=== PATIENT | female | born 1990 | race Caucasian/White ===

== ENCOUNTER 2018-08-12 12:25 | Outpatient (REF) | payer MEDICAID, SELFPAY ==
--- NOTE | 2018-08-12 11:20 | PAPFT_PTH ---
PATIENT: Simon Aguila LOC: [facility] U#:[id number] AGE/SX: 28/F ROOM: RE08/12/[address]: VERITO Quan : 1990 BED: DIS: 08/12/2018 SPEC #: [id number] RECD: 08/12/18 12:50 STATUS: DAWSON REEmily #: [id number] PIA: 08/12/18 11:[address]: Lissa Castillo DEPT: [facility] Cytology RECD BY: Cari Osborn Tissues: 1 - CX/ENDOCX FOR PAP SMEARS Procedures: PAP THIN PREP/UVM Screening Comments: [id number]
[2018-08-15 15:23] LABS: Chlamydia Result Negative; GC Result Negative; Specimen Description CERVIX
== END 2018-08-12 12:45 ==
LOC: LBN 12:25
PROVIDERS: Visit Provider Nurse Practitioner Family
DX: Z11.3 Encounter for screening for infections with a predominantly sexual mode of transmission (principal); Z12.4 Encounter for screening for malignant neoplasm of cervix; R30.0 Dysuria
CPT/HCPCS: 87491; 87591; 88142; 87086

== ENCOUNTER 2018-11-01 01:57 | Emergency (ER) | payer SELFPAY ==
[2018-11-01 02:03] VITALS: BP 127/86; PULSE 115; RESP 20; TEMP 36.7; O2SAT 96
--- NOTE | 2018-11-01 02:14 | NUR.NOTE ---
Nursing Note: Pt verbally contracts for safety while here in ED. Mother to stay with pt in room. MD aware. Pt is calm, appropriate and cooperative.
--- NOTE | 2018-11-01 02:28 | W.ED.GENAD ---
Discharge Plan Disposition Patient Disposition: HOME Condition: Improving Discharge Details Chief Complaint: PsychEval Clinical Impression: Acute depression, Deliberate self-cutting Primary Care Provider: None,None ED Provider: Yojana Tillman Home Meds and New Rx's Prescriptions: Continued Mirena 1 EACH intrauterine device 1 ea Intrauterine q5yr Qty: 1 RF: 0 Discharge Instructions Instructions: Laceration (ED), Suicide Prevention for Adults (ED), Depression in Adolescents (ED) Additional Instructions: Keep wound clean, dry, covered. May wash with soap and water. Please keep covered, particularly when at work. Monitor wounds for signs of infection including redness, warmth, discharge, fevers/chills. If these arise please seek care urgently once again. You have contacted for safety. Please check in with mom as discussed at set times. If you are unable to speak at that time (ie. if you are working), please text her and set up another time. [facility] will be in touch with you tomorrow to check in. If you do not hear from them please call. They are available at anytime. You may call [phone], this number is open 24 hours a day. If you have thoughts of self harm, cutting or other new/worsening symptoms please seek care urgently once again. telehealth coordinator will be in touch with you regarding establishing primary care provider. Discharge Data Discharge Date/Time-TO BE ENTERED AT DEPARTURE: 11/01/18 10:51 Medical Decision Making <Иван Stewart MD - Last Filed: 11/01/18 07:30> 28-year-old female with a history of intermittent depression and alcohol use, states that she sometimes gets sad and upset when drinking. And tonight after drinking alcohol became depressed and attempted to kill herself by cutting her left forearm. She called her mother after being frightened.Presents to the emergency department feeling despondent and regretful. Denies further thoughts of harming herself or others. States that she had 2 previous admissions to [facility]. Has lost contact with her counselor in [place]. She is anxious and tearful. Medical screening examination performed including laboratory analysis. Patient had a left volar forearm laceration that was repaired with interrupted sutures that should be left in place approximately 7 days. No vascular involvement. Patients lab analysis notable for EtOH>200. Pt observed overnight. At 0700, Medically stable and clinically appropriate for evaluation by mental health. Patient signed out to Dr Huerta at change of shift, please see his note. Lab Data Lab results reviewed: Yes I reviewed the patient's lab results. Laboratory Results - last 24 hr 11/01/18 11/01/18 11/01/18 02:36 02:55 02:55 WBC RBC Hgb Hct MCV MCH MCHC RDW Plt Count MPV Immature Gran % Neutrophils % Lymphocytes % Monocytes % Eosinophils % Basophils % Absolute Neutrophils Absolute Lymphocytes Absolute Monocytes Absolute Eosinophils Absolute Basophils Sodium 144 Potassium 3.8 Chloride 106 Carbon Dioxide 26.8 Anion Gap 11.2 H BUN 10 Creatinine 0.84 Estimated GFR/1.73 m2 >= 60.00 Glucose 110 H Calcium 8.4 L Total Bilirubin 0.2 AST 11 L ALT 18 Alkaline Phosphatase 90 Total Protein 7.8 Albumin 4.1 TSH 2.11 Salicylates < 2.8 L Urine Opiates Screen Negative Urine Methadone Screen Negative Acetaminophen < 2 L Ur Barbiturates Screen Negative Ur Tricyclics Screen Negative Ur Amphetamines Screen Negative U Benzodiazepines Scrn Negative Urine Cocaine Screen Negative Ur THC Screen Positive Ethyl Alcohol 267.8 11/01/18 02:55 WBC 4.81 RBC 4.73 Hgb 14.5 Hct 41.9 MCV 88.6 MCH 30.7 MCHC 34.6 RDW 12.8 Plt Count 221 MPV 10.4 Immature Gran % 0.0 Neutrophils % 49.5 Lymphocytes % 37.0 Monocytes % 8.7 Eosinophils % 4.2 Basophils % 0.6 Absolute Neutrophils 2.38 Absolute Lymphocytes 1.78 Absolute Monocytes 0.42 Absolute Eosinophils 0.20 Absolute Basophils 0.03 Sodium Potassium Chloride Carbon Dioxide Anion Gap BUN Creatinine Estimated GFR/1.73 m2 Glucose Calcium Total Bilirubin AST ALT Alkaline Phosphatase Total Protein Albumin TSH Salicylates Urine Opiates Screen Urine Methadone Screen Acetaminophen Ur Barbiturates Screen Ur Tricyclics Screen Ur Amphetamines Screen U Benzodiazepines Scrn Urine Cocaine Screen Ur THC Screen Ethyl Alcohol <AMANDA Spencer - Last Filed: 11/01/18 11:27> Care was transitioned to myself from Dr. Stewart pending evaluation with mental health. Patient initially presented early this morning after cutting her wrists while intoxicated. At that time, patient reported to Dr. Stewart that she did not know why she cut herself. Upon my arrival to the department, patient was with mental health. Mental health then advised the patient was doing this in fact a suicide attempt. Patient has tried to kill herself through cutting and carbon monoxide poisoning previously. Patient did tell the mental health worker that she did not initially disclose this to the physician initially. I have placed an order for CPSO. [facility] health is also contacting Jose with [facility] who knows the patient well and has been her outpatient counselor previously. Jose evaluated the patient. HE knowsn patient wll. Advised that much of her depression is from her beginning drinking again. Feels that she has done well previously with outpatient counseling which she has stopped recently. He advises that while patient can become suicidal when drinking, secondary to guilt, she is very futuristic and does feel that she is able to contract for safety at this time. ADvised that she needs PCP, personal care worker is helping to establish this. He is helping to refer her to a counselor and will have [facility] check in on her tomorrow. Mother is here and is able to help with this safety plan. Set times for the patient to check in with her mother multiple times a day have been established. She lives with boyfriend who is also aware of current issue. Patient, mother and mental health feel that she is safe for discharge at this time with close follow up and continued monitoring. Wound care was discussed with mother and patient. She will return in 7 days for suture removal. She was given strict return precautions. Mother is aware of plan and will contact [facility] or emergency services if Simon does not check in with her at their scheduled times. All of their questions adn concerns were addressed, they are in agreement with this plan. Patient verbally contacts for safety and is aware of services available to her. Contact numbers given. HPI <Иван Stewart MD - Last Filed: 11/01/18 07:30> General Mode of arrival: ambulatory. Date/Time Provider Initiated Documentation: 11/01/18 02:00. Limitations to Documentation: no limitations. Information obtained by: patient. History of Present Illness 28 year old F presents to the emergency department with the chief complaint of Depression and attempted suicide, described as moderate, Quality is described as constant, Patient started experiencing this day(s) and it has been constant. No relieving factors improve symptom(s), No exacerbating factors reported . Patient notes other (Alcohol use, generalized intermittent depression). Patient did receive the following treatments prior to arrival, none Related Data Home Medications Medication Instructions Recorded Confirmed Mirena 1 ea INTRAUTERINE q5yr #1 ea 02/09/17 11/01/18 Allergies Allergy/AdvReac Type Severity Reaction Status Date / Time No Known Drug Allergies Allergy Unverified 11/01/18 02:09 General Stated Complaint: PsychEval NIRAV: 2 Review of Systems <Иван Stewart MD - Last Filed: 11/01/18 07:30> Review of Systems 8 systems reviewed and otherwise neg PFSH <Иван Stewart MD - Last Filed: 11/01/18 07:30> Family History Father Heart disease Myocardial infarction Maternal Aunt Myocardial infarction Maternal Aunt Myocardial infarction Social 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 Pleasant, well groomed, interactive, . HEAD: Normocephalic, atraumatic ENT: Mucous membranes moist, oropharynx unremarkable, External ear exam unremarkable EYES: PERRL, EOMI NECK: Full ROM, no TANNER, no menigismus CHEST/RESP: Nontender, clear to auscultation bilateral, no wheeze/rhonchi/rales CARDIOVASCULAR: RRR, no murmur, rub shar. 2+ Rad pulse bilateral ABDOMEN: Soft, nontender, no mass. +Bowel sounds EXT: Full ROM, no edema, no rash. Left volar distal forearm with approximately 4 cm linear laceration through the dermis, palpable 2+ radial pulse. No foreign body. No deep tissue involvement Neuro: Grossly normal neurologic exam, conversant, interactive. Psych: Speech fluent, thoughts congruent, affect depressed and tearful Course <Иван Stewart MD - Last Filed: 11/01/18 07:30> Vital Signs Temperature 36.7 C 11/01/18 02:03 Pulse 115 H 11/01/18 02:03 Respiratory Rate 20 11/01/18 02:03 Blood Pressure 127/86 11/01/18 02:03 Pulse Oximetry 96 11/01/18 02:03 Temperature 36.7 C 11/01/18 02:03 Temperature Source Temporal Artery Scan 11/01/18 02:03 Pulse 115 H 11/01/18 02:03 Respiratory Rate 20 11/01/18 02:03 Blood Pressure 127/86 11/01/18 02:03 Blood Pressure Position Sitting 11/01/18 02:03 Pulse Oximetry 96 11/01/18 02:03 Oxygen Delivery Method Room Air 11/01/18 02:03 Oxygen Flow Rate 0 11/01/18 02:03 Pain Level 0 11/01/18 02:03 Procedures <Иван Stewart MD - Last Filed: 11/01/18 07:30> Laceration Laceration 1: Site: upper extremity Side (If applicable): left Size (cm): 4 Description: linear Depth: simple, single layer Local Anesthetic: Lidocaine 1% Amount of anesthesia used (mL): 2 Pre-repair: wound explored, irrigated extensively and deep structures intact Skin layer closed with: nylon Size (cm): 5-0 Number of sutures: 5 Technique: simple, interrupted Sign Out <Иван Stewart MD - Last Filed: 11/01/18 07:30> Sign Out Data: Sign Out Comment: Followup mental health consult Last updated by Иван Stewart MD at 11/01/18 07:40
--- NOTE | 2018-11-01 02:33 | ED.GENADUL_ITS ---
Discharge Plan Disposition Patient Disposition: HOME Condition: Improving Discharge Details Chief Complaint: PsychEval Clinical Impression: Acute depression, Deliberate self-cutting Primary Care Provider: None,None ED Provider: Yojana Tillman Home Meds and New Rx's Prescriptions: Continued Mirena 1 EACH intrauterine device 1 ea Intrauterine q5yr Qty: 1 RF: 0 Discharge Instructions Instructions: Laceration (ED), Suicide Prevention for Adults (ED), Depression in Adolescents (ED) Additional Instructions: Keep wound clean, dry, covered. May wash with soap and water. Please keep covered, particularly when at work. Monitor wounds for signs of infection including redness, warmth, discharge, fevers/chills. If these arise please seek care urgently once again. You have contacted for safety. Please check in with mom as discussed at set times. If you are unable to speak at that time (ie. if you are working), please text her and set up another time. [facility]KE[facility] will be in touch with you tomorrow to check in. If you do not hear from them please call. They are available at anytime. You may call [phone], this number is open 24 hours a day. If you have thoughts of self harm, cutting or other new/worsening symptoms please seek care urgently once again. health and wellness coordinator will be in touch with you regarding establishing primary care provider. Discharge Data Discharge Date/Time-TO BE ENTERED AT DEPARTURE: 11/01/18 10:51 Medical Decision Making <Иван Stewart MD - Last Filed: 11/01/18 07:30> 28-year-old female with a history of intermittent depression and alcohol use, states that she sometimes gets sad and upset when drinking. And tonight after drinking alcohol became depressed and attempted to kill herself by cutting her left forearm. She called her mother after being frightened.Presents to the emergency department feeling despondent and regretful. Denies further thoughts of harming herself or others. States that she had [facility] previous [facility]. Has lost contact with her counselor in [place]. She is anxious and tearful. Medical screening examination performed including laboratory analysis. Patient had a left volar forearm laceration that was repaired with interrupted sutures that should be left in place approximately 7 days. No vascular involvement. Patients lab analysis notable for EtOH>200. Pt observed overnight. At 0700, Medically stable and clinically appropriate for evaluation by mental health. Patient signed out to Dr Huerta at change of shift, please see his note. Lab Data Lab results reviewed: Yes I reviewed the patient's lab results. Laboratory Results - last 24 hr 11/01/18 11/01/18 11/01/18 02:36 02:55 02:55 WBC RBC Hgb Hct MCV MCH MCHC RDW Plt Count MPV Immature Gran % Neutrophils % Lymphocytes % Monocytes % Eosinophils % Basophils % Absolute Neutrophils Absolute Lymphocytes Absolute Monocytes Absolute Eosinophils Absolute Basophils Sodium 144 Potassium 3.8 Chloride 106 Carbon Dioxide 26.8 Anion Gap 11.2 H BUN 10 Creatinine 0.84 Estimated GFR/1.73 m2 >= 60.00 Glucose 110 H Calcium 8.4 L Total Bilirubin 0.2 AST 11 L ALT 18 Alkaline Phosphatase 90 Total Protein 7.8 Albumin 4.1 TSH 2.11 Salicylates < 2.8 L Urine Opiates Screen Negative Urine Methadone Screen Negative Acetaminophen < 2 L Ur Barbiturates Screen Negative Ur Tricyclics Screen Negative Ur Amphetamines Screen Negative U Benzodiazepines Scrn Negative Urine Cocaine Screen Negative Ur THC Screen Positive Ethyl Alcohol 267.8 11/01/18 02:55 WBC 4.81 RBC 4.73 Hgb 14.5 Hct 41.9 MCV 88.6 MCH 30.7 MCHC 34.6 RDW 12.8 Plt Count 221 MPV 10.4 Immature Gran % 0.0 Neutrophils % 49.5 Lymphocytes % 37.0 Monocytes % 8.7 Eosinophils % 4.2 Basophils % 0.6 Absolute Neutrophils 2.38 Absolute Lymphocytes 1.78 Absolute Monocytes 0.42 Absolute Eosinophils 0.20 Absolute Basophils 0.03 Sodium Potassium Chloride Carbon Dioxide Anion Gap BUN Creatinine Estimated GFR/1.73 m2 Glucose Calcium Total Bilirubin AST ALT Alkaline Phosphatase Total Protein Albumin TSH Salicylates Urine Opiates Screen Urine Methadone Screen Acetaminophen Ur Barbiturates Screen Ur Tricyclics Screen Ur Amphetamines Screen U Benzodiazepines Scrn Urine Cocaine Screen Ur THC Screen Ethyl Alcohol <AMANDA Spencer - Last Filed: 11/01/18 11:27> Care was transitioned to myself from Dr. Stewart pending evaluation with mental health. Patient initially presented early this morning after cutting her wrists while intoxicated. At that time, patient reported to Dr. Stewart that she did not know why she cut herself. Upon my arrival to the department, patient was with mental health. Mental health then advised the patient was doing this in fact a suicide attempt. Patient has tried to kill herself through cutting and carbon monoxide poisoning previously. Patient did tell the mental health worker that she did not initially disclose this to the physician initially. I have placed an order for CPSO. [facility] health is also contacting Jose with [facility] who knows the patient well and has been her outpatient counselor previously. Jose evaluated the patient. HE knowsn patient wll. Advised that much of her depression is from her beginning drinking again. Feels that she has done well previously with outpatient counseling which she has stopped recently. He advises that while patient can become suicidal when drinking, secondary to guilt, she is very futuristic and does feel that she is able to contract for safety at this time. ADvised that she needs PCP, health care facility administrator is helping to establish this. He is helping to refer her to a counselor and will have [facility] check in on her tomorrow. Mother is here and is able to help with this safety plan. Set times for the patient to check in with her mother multiple times a day have been established. She lives with boyfriend who is also aware of current issue. Patient, mother and mental health feel that she is safe for discharge at this time with close follow up and continued monitoring. Wound care was discussed with mother and patient. She will return in 7 days for suture removal. She was given strict return precautions. Mother is aware of plan and will contact [facility] or emergency services if Simon does not check in with her at their scheduled times. All of their questions adn concerns were addressed, they are in agreement with this plan. Patient verbally contacts for safety and is aware of services available to her. Contact numbers given. HPI <Иван Stewart MD - Last Filed: 11/01/18 07:30> General Mode of arrival: ambulatory . Date/Time Provider Initiated Documentation: 11/01/18 02:00 . Limitations to Documentation: no limitations . Information obtained by: patient . History of Present Illness 28 year old F presents to the emergency department with the chief complaint of Depression and attempted suicide, described as moderate, Quality is described as constant, Patient started experiencing this day(s) and it has been constant. No relieving factors improve symptom(s), No exacerbating factors reported . Patient notes other (Alcohol use, generalized intermittent depression). Patient did receive the following treatments prior to arrival, none Related Data Home Medications Medication Instructions Recorded Confirmed Mirena 1 ea INTRAUTERINE q5yr #1 ea 02/09/17 11/01/18 Allergies Allergy/AdvReac Type Severity Reaction Status Date / Time No Known Drug Allergies Allergy Unverified 11/01/18 02:09 General Stated Complaint: PsychEval NIRAV: 2 Review of Systems <Иван Stewart MD - Last Filed: 11/01/18 07:30> Review of Systems 8 systems reviewed and otherwise neg PFSH <Иван Stewart MD - Last Filed: 11/01/18 07:30> Family History Father Heart disease Myocardial infarction Maternal Aunt Myocardial infarction Maternal Aunt Myocardial infarction 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 Pleasant, well groomed, interactive, . HEAD: Normocephalic, atraumatic ENT: Mucous membranes moist, oropharynx unremarkable, External ear exam unremarkable EYES: PERRL, EOMI NECK: Full ROM, no TANNER, no menigismus CHEST/RESP: Nontender, clear to auscultation bilateral, no wheeze/rhonchi/rales CARDIOVASCULAR: RRR, no murmur, rub shar. 2+ Rad pulse bilateral ABDOMEN: Soft, nontender, no mass. +Bowel sounds EXT: Full ROM, no edema, no rash. Left volar distal forearm with approximately 4 cm linear laceration through the dermis, palpable 2+ radial pulse. No foreign body. No deep tissue involvement Neuro: Grossly normal neurologic exam, conversant, interactive. Psych: Speech fluent, thoughts congruent, affect depressed and tearful Course <Иван Stewart MD - Last Filed: 11/01/18 07:30> Vital Signs Temperature 36.7 C 11/01/18 02:03 Pulse 115 H 11/01/18 02:03 Respiratory Rate 20 11/01/18 02:03 Blood Pressure 127/86 11/01/18 02:03 Pulse Oximetry 96 11/01/18 02:03 Temperature 36.7 C 11/01/18 02:03 Temperature Source Temporal Artery Scan 11/01/18 02:03 Pulse 115 H 11/01/18 02:03 Respiratory Rate 20 11/01/18 02:03 Blood Pressure 127/86 11/01/18 02:03 Blood Pressure Position Sitting 11/01/18 02:03 Pulse Oximetry 96 11/01/18 02:03 Oxygen Delivery Method Room Air 11/01/18 02:03 Oxygen Flow Rate 0 11/01/18 02:03 Pain Level 0 11/01/18 02:03 Procedures <Иван Stewart MD - Last Filed: 11/01/18 07:30> Laceration Laceration 1: Site: upper extremity Side (If applicable): left Size (cm): 4 Description: linear Depth: simple, single layer Local Anesthetic: Lidocaine 1% Amount of anesthesia used (mL): 2 Pre-repair: wound explored, irrigated extensively and deep structures intact Skin layer closed with: nylon Size (cm): 5-0 Number of sutures: 5 Technique: simple, interrupted Sign Out <Иван Stewart MD - Last Filed: 11/01/18 07:30> Sign Out Data: Sign Out Comment: Followup mental health consult Last updated by Иван Stewart MD at 11/01/18 07:40
[2018-11-01 02:56] LABS: *AMPHETAMINES SCREEN URINE Negative (Negative); *BARBITURATES SCREEN URINE Negative (Negative); *BENZODIAZEPINES SCREEN URINE Negative (Negative); Cannabinoids THC POSITIVE (Negative); Cocaine Screen,Urine Negative (Negative); METHADONE URINE SCREEN Negative (Negative); OPIATES URINE SCREEN Negative (Negative)
[2018-11-01 03:03] LABS: Tricyclic Antidepressants Negative (Negative)
[2018-11-01 03:08] LABS: Absolute Basophil Count 0.03 k/cumm (0.0-0.2); Absolute Lymphocyte Count 1.78 k/cumm (1.2-3.4); Absolute Monocyte Count 0.42 k/cumm (0.11-0.7); Absolute Neutrophil Count 2.38 k/cumm (1.2-6.7); Basophils % 0.6; Eosinophils % 4.2; HCT 41.9 % (36.0-46.0); HGB 14.5 g/dL (12.0-15.5); Mean Corp. HGB Concentration 34.6 g/dL (32.0-36.0); Mean Corpuscular Hemoglobin 30.7 pg (27.0-33.0); Mean Corpuscular Volume 88.6 fL (80-95); Mean Platelet Volume 10.4 fL (8.0-11.0); Monocytes % 8.7; Neutrophils % 49.5; Platelet Count 221 x1000/uL (130-400); RBC 4.73 m/cumm (4.00-5.20); RBC Distribution Width 12.8 % (11.7-14.6); White Blood Cell Count 4.81 k/cumm (4.4-10.8)
[2018-11-01 03:23] LABS: Salicylate < 2.8 mg/dL (2.8-20.0)
[2018-11-01 03:25] LABS: ALT 18 U/L (12-78); AST 11 U/L (15-37); Albumin 4.1 g/dL (3.4-5.0); Alkaline Phosphatase 90 U/L (46-116); Anion Gap 11.2 mmol/L (3-11); BUN 10 mg/dL (7-18); Bilirubin, Total 0.2 mg/dL (0.2-1.0); CO2 26.8 mmol/L (21.0-32.0); CREATININE 0.84 mg/dL (0.55-1.02); Calcium 8.4 mg/dL (8.5-10.1); Chloride 106 mmol/L (98-107); ETHANOL BLOOD 267.8 mg/dL (<3); Glucose 110 mg/dL (70-100); Potassium 3.8 mmol/L (3.5-5.1); Sodium 144 mmol/L (136-145); TSH 2.11 uIU/mL (0.358-3.74); Total Protein 7.8 g/dL (6.4-8.2)
[2018-11-01 04:06] LABS: Acetaminophen < 2 ug/mL (10-30)
--- NOTE | 2018-11-01 04:54 | NUR.NOTE ---
Nursing Note: pt in room, eyes closed, resting on stretcher. Mother remain in room, at bedside. RR even and unlabored at approximately 16/min.
[2018-11-01 04:57] LABS: Bilirubin Negative (Negative); Blood Negative (Negative); Clarity Clear; Glucose Negative (Negative); Ketones Negative (Negative); Leukocyte Esterase Negative (Negative); Nitrite Negative (Negative); Urobilinogen 0.2 EU/dL (Up TO 0.2)
[2018-11-01 06:53] VITALS: BP 122/68; PULSE 109; RESP 18; O2SAT 96
--- NOTE | 2018-11-01 08:49 | NUR.NOTE ---
pt sitting up in the rm with family at bedside and has been given b- fast for mom and pt mental health in to talk with pt Nursing Note:
[2018-11-01 08:59] VITALS: BP 102/64; PULSE 93; RESP 14; TEMP 36.8; O2SAT 98
--- NOTE | 2018-11-01 09:00 | NUR.NOTE ---
Nursing Note: pt stated that she has left wrist pain 4 and is requisting motrin er doctor notified
[2018-11-01] MEDS: Ibuprofen 600 MG TAB PO (09:20)
--- NOTE | 2018-11-01 09:51 | PDOC.ERCMPRO ---
Care Management Progress Note 11/01-VOLUNTARY FOR INPATIENT PSYCHIATRIC STABILIZATION. Current behaviors cooperative and appropriate in all interactions since arriving at [facility]; she has demonstrated appropriate coping and communication skills, has articulated her needs and concerns and is fully engaged during staff interactions. Patient continually states, ?I want to check out.? HERMESGERARDO is here, Dariln and Jose and Darlin has discussed the importance of her continuing to be cooperative and carrying through with the plan of placement. Huddle Participants: WINTER Saeed; MARY Cartwright [facility]; Yojana PATEL [facility], Ryder SUTHERLAND. 11/01/18 at 0900 This is Simon?s third suicide attempt. First attempt patient slit wrists; second attempt patient covered exhaust on car; third attempt, this admission, cutting arm. Simon was in a treatment facility in June and September of 2018. Simon does not want to tell her boyfriend so at this time, Darlin from [facility] does not feel a safety plan for home discharge would be appropriate. Patient needs inpatient admission. Simon states she has lost contact with her counselor in [place]. 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 Simon states this is a new job. Patient was medically cleared at 0700 this am after alcohol level had gone down (please see provider note). Hyacinth, Nursing Oracle Adf Developer is looking for CPSO. Currently nursing is sitting with patient. Safety plan has been established with patient, and care team, to adhere to patient goals, identify restrictions based on behavioral status, address nutrition, and determine allowed personal belongings, tools for hygiene and personal care. Determine level of activity including ambulation, level of supervision, visitors, and determine privileges based on behaviors and level of engagement by pt. SAFETY PLAN: 1. Will remain on suicide precautions. In Paper Clothes 2. Will remain in room under direct supervision of one-on-one staff at all times provided by [place], LUZ twisting machine operator. 3. May have paper cups, plates, finger foods as well as a metal spoon with which to eat meals. [facility] staff will be responsible for accounting of utensils after meals. 4. Follow [facility] Management of the Admitted Behavioral Health Patient policy. 5. Comfort bath system only. 6. No personal belongings in room 7. May have supervised phone privileges at the discretion of the provider 7. Visitors, mom is here with her at this time 8. Activities from the MH Cart in the ED 9. May have television if available 10. Bathroom privileges may go to the bathroom with staff escort. 11. Due to VOLUNTARY status, if patient wishes to leave [facility], the [facility] final assembly worker must be contacted to re-evaluate patient prior to patient exiting the building. Placement: [facility] is calling facilities to check on bed availability. Patient is currently voluntarily at [facility] and seeking inpatient admission when a bed becomes available. [facility] Frontline Residential Worker will continue seeking placement. Please contact the Interdisciplinary Professor Weapons Mechanic ([phone]) and [facility] Residential Worker ([phone]) for any needed changes in the Safety Plan. Safety plan has been provided to interdepartmental care team including Clinical Coordinator, Nursing Oracle Adf Developer. Safety Plan was distributed to members of the care team.
[2018-11-01 10:09] VITALS: BP 100/66; PULSE 85; RESP 14; TEMP 36.7; O2SAT 97
[2018-11-01 10:33] VITALS: BP 101/69; PULSE 91; RESP 14; O2SAT 97
[2018-11-01 10:35] VITALS: BP 101/69; PULSE 91; RESP 14; O2SAT 97
--- NOTE | 2018-11-01 10:42 | PDOC.MHCN ---
Date of service: 11/01/18 Time of Service: 10:43 Mental Health Crisis Note Presenting Issue How did you arrive at the ED and why did you come: Patient arrived voluntarily to the emergency room with her mother. This was following a cutting attempt that she reports was a suicide attempt to her mother. The cut was fairly superficial and was stitched by the medical doctor. Precipitating Factors Simon is futuristic at this time. She wants to go to work and is worried about letting down the people she works with and her boyfriend. She identifies several days of shifts over the next week indicating she is futuristic without the immediate risk or intent of a more severe suicidal attempt/gesture. She also identifies patterns of drinking that she can identify that make her feel guilty, which exacerbates the depression. Disposition BEHAVIOR: cooperative, willing to utilize resources given to her for a PCP and a counselor for co-occurring counseling needs. EYE CONTACT: good MOOD: depressed AFFECT: constricted APPETITE: good SLEEP(trouble falling/staying asleep: none reported Plan Simon is being discharged to herself. She will have her mother follow-up with her twice a day for wellness check ins. Mom will call every morning at 9:30 a.m. At that time they will also discuss her shift at her job to determine when the second call is coming in. Simon is going to go to economic services to apply for insurance. She intends to follow up with doctor recommendations for a PCP. This handbook writer will refer her to a co-occurring counselor at [facility] to begin addressing the depression. Her mother will inform emergency services at [facility] if signs or symptoms of depression recur or does not change. Signature Clinician's Name/Title: Jose Berg MA [facility]
--- NOTE | 2018-11-01 11:47 | PDOC.MHCN_ITS ---
Date of service: 11/01/18 Time of Service: 10:43 Mental Health Crisis Note Presenting Issue How did you arrive at the ED and why did you come: Patient arrived voluntarily to the emergency room with her mother. This was following a cutting attempt that she reports was a suicide attempt to her mother. The cut was fairly superficial and was stitched by the medical doctor. Precipitating Factors Simon is futuristic at this time. She wants to go to work and is worried about letting down the people she works with and her boyfriend. She identifies several days of shifts over the next week indicating she is futuristic without the immediate risk or intent of a more severe suicidal attempt/gesture. She also identifies patterns of drinking that she can identify that make her feel guilty, which exacerbates the depression. Disposition BEHAVIOR: cooperative, willing to utilize resources given to her for a PCP and a counselor for co-occurring counseling needs. EYE CONTACT: good MOOD: depressed AFFECT: constricted APPETITE: good SLEEP(trouble falling/staying asleep: none reported Plan Simon is being discharged to herself. She will have her mother follow-up with her twice a day for wellness check ins. Mom will call every morning at 9:30 a.m. At that time they will also discuss her shift at her job to determine when the second call is coming in. Simon is going to go to economic services to apply for insurance. She intends to follow up with doctor recommendations for a PCP. This senior medical writer will refer her to a co-occurring counselor at [facility] to begin addressing the depression. Her mother will inform emergency services at [facility] if signs or symptoms of depression recur or does not change. Signature Clinician's Name/Title: Jose Berg MA [facility]
== END 2018-11-01 10:51 | disposition home or self-care (01) ==
PROVIDERS: Emergency Medicine; Emergency Provider Physician Assistant
DX: T14.91XA Suicide attempt, initial encounter (principal); F32.9 Major depressive disorder, single episode, unspecified; F10.10 Alcohol abuse, uncomplicated; S51.812A Laceration without foreign body of left forearm, initial encounter; X78.9XXA Intentional self-harm by unspecified sharp object, initial encounter; Z91.5 Personal history of self-harm
CPT/HCPCS: 12002; 36415; 80053; 80307; 99285; 80320; 80329; 81003; 84443; 85025; 99284

== ENCOUNTER 2019-02-15 10:06 | Outpatient (REF) | payer SELFPAY ==
--- NOTE | 2019-02-15 09:00 | SKI_PTH ---
PATIENT: Simon Aguila LOC: [facility] U#:[id number] AGE/SX: 28/F ROOM: RE02/15/[address]: Radha Huerta NP : 1990 BED: DIS: 02/15/2019 SPEC #: [id number] RECD: 02/15/19 12:58 STATUS: [place] #: [id number] PIA: 02/15/19 09:[address]: Radha Huerta NP DEPT: Surgical Specimen RECD BY: Cari Osborn ENTERED: 02/15/19 12:59 SP TYPE: BRYAN BRAVO DR: VERITO Goss Tissues: 1 - SKIN CYST/TAG/DEBRIDEMENT Procedures: SKIN BIOPSY LEVEL 3 Comments: [id number]
== END 2019-02-15 10:26 ==
LOC: LBN 10:06
PROVIDERS: PCP Nurse Practitioner Family; Visit Provider Nurse Practitioner Women's Health
DX: A63.0 Anogenital (venereal) warts (principal)
CPT/HCPCS: 88304

== ENCOUNTER 2019-08-15 11:53 | Outpatient (REF) | payer MEDICAID, SELFPAY ==
--- NOTE | 2019-08-15 11:00 | PAPFT_PTH ---
PATIENT: Simon Aguila LOC: [facility] U#:[id number] AGE/SX: 29/F ROOM: RE08/15/[address]: VERITO Quan : 1990 BED: DIS: 08/15/2019 SPEC #: [id number] RECD: 08/15/19 13:01 STATUS: DAWSON REEmily #: [id number] PIA: 08/15/19 11:[address]: Lissa Castillo DEPT: [facility] Cytology RECD BY: Cari Osborn ENTERED: 08/15/19 13:02 SP TYPE: PAPFT SHELLY DR: VERITO Goss Tissues: 1 - CX/ENDOCX FOR PAP SMEARS Procedures: PAP THIN PREP/UVM Screening Comments: [id number]
[2019-08-16 13:53] LABS: Chlamydia Result Negative (Negative); GC Result Negative (Negative); Specimen Description CERVIX
== END 2019-08-15 12:13 ==
LOC: LBN 11:53
PROVIDERS: PCP Nurse Practitioner Family; Visit Provider Nurse Practitioner Family
DX: Z11.3 Encounter for screening for infections with a predominantly sexual mode of transmission (principal); Z12.4 Encounter for screening for malignant neoplasm of cervix
CPT/HCPCS: 87491; 87591; 88142

== ENCOUNTER 2019-12-07 14:43 | Outpatient (REF) | payer MEDICAID, SELFPAY ==
[2019-12-08 13:01] LABS: HSV 1 DNA Result Negative (Negative); HSV 2 DNA Result Positive (Negative)
== END 2019-12-07 15:03 ==
LOC: LBN 14:43
PROVIDERS: Visit Provider Obstetrics & Gynecology
DX: Z11.3 Encounter for screening for infections with a predominantly sexual mode of transmission (principal)
CPT/HCPCS: 87529

== ENCOUNTER 2020-08-27 10:22 | Outpatient (REF) | payer MEDICAID, SELFPAY ==
--- NOTE | 2020-08-27 10:00 | PAPFT_PTH ---
PATIENT: Simon Aguila LOC: [facility] U#:[id number] AGE/SX: 30/F ROOM: RE08/27/[address]: VERITO Quan : 1990 BED: DIS: 08/27/2020 SPEC #: [id number] RECD: 08/27/20 12:47 STATUS: DAWSON REQ #: [id number] PIA: 08/27/20 10:[address]: Lissa Castillo DEPT: [facility] Cytology RECD BY: Cari Osborn ENTERED: 08/27/20 12:47 SP TYPE: PAPFT OT DR: Unknown,Unknown Tissues: 1 - CX/ENDOCX FOR PAP SMEARS Procedures: PAP THIN PREP/UVM Screening Comments: [id number] (CVPH#)
== END 2020-08-27 10:42 ==
LOC: LBN 10:22
PROVIDERS: Visit Provider Nurse Practitioner Family
DX: Z12.4 Encounter for screening for malignant neoplasm of cervix (principal); N76.0 Acute vaginitis
CPT/HCPCS: 88142

== ENCOUNTER 2021-06-04 02:39 | Outpatient (CLI) | payer BC, SELFPAY ==
[2021-06-04 09:15] LABS: Anion Gap 10.4 mmol/L (3-11); BUN 15 mg/dL (7-18); CO2 25.6 mmol/L (21.0-32.0); CREATININE 0.8 mg/dL (0.55-1.02); Calculated LDL 83 mg/dL (<100); Chloride 105 mmol/L (98-107); Cholesterol 171 mg/dL (<200); Glucose 94 mg/dL (74-106); HDL Cholesterol 77 mg/dL (40-60); Potassium 4.3 mmol/L (3.5-5.1); Sodium 141 mmol/L (136-145); Triglyceride 55 mg/dL (<150)
== END 2021-06-04 02:40 | disposition home or self-care (01) ==
LOC: LBO 02:39
PROVIDERS: PCP Nurse Practitioner Family; Visit Provider Nurse Practitioner Family
DX: Z00.00 Encounter for general adult medical examination without abnormal findings (principal); Z13.220 Encounter for screening for lipoid disorders
CPT/HCPCS: 36415; 80048; 80061

== ENCOUNTER 2021-07-29 03:52 | Outpatient (CLI) | payer BC, SELFPAY ==
[2021-07-29 13:33] LABS: Lithium 0.6 mmol/l (0.6-1.2)
[2021-07-29 13:48] LABS: Albumin 4.1 g/dL (3.4-5.0); Anion Gap 7.9 mmol/L (3-11); BUN 13 mg/dL (7-18); CO2 29.1 mmol/L (21.0-32.0); CREATININE 0.8 mg/dL (0.55-1.02); Calcium 9.1 mg/dL (8.5-10.1); Chloride 103 mmol/L (98-107); Glucose 86 mg/dL (74-106); Potassium 4.4 mmol/L (3.5-5.1); Sodium 140 mmol/L (136-145)
[2021-07-29 14:03] LABS: PHOSPHORUS 4.1 mg/dL (2.6-4.7)
== END 2021-07-29 03:53 | disposition home or self-care (01) ==
LOC: LBO 03:52
PROVIDERS: PCP Nurse Practitioner Family; Visit Provider Nurse Practitioner Family
DX: F31.73 Bipolar disorder, in partial remission, most recent episode manic (principal); F10.21 Alcohol dependence, in remission
CPT/HCPCS: 36415; 80069; 80178; 84443

== ENCOUNTER 2021-09-16 02:38 | Outpatient (CLI) | payer BC, SELFPAY ==
[2021-09-16 10:05] LABS: Lithium 1.5 mmol/l (0.6-1.2)
== END 2021-09-16 02:39 | disposition home or self-care (01) ==
LOC: LBO 02:39
PROVIDERS: PCP Nurse Practitioner Family; Visit Provider Nurse Practitioner Family
DX: F31.73 Bipolar disorder, in partial remission, most recent episode manic (principal); F10.21 Alcohol dependence, in remission
CPT/HCPCS: 36415; 80178

== ENCOUNTER 2021-09-25 08:29 | Emergency (ER) | payer BC, SELFPAY ==
--- NOTE | 2021-09-25 08:30 | RT.EKG_ITS ---
APPROVED REPORT Exam: Resting ECG Reason for Exam: ?electrolyte abnormality Patient Location: E HR:103 bpm ECG Measurements Heart Rate 103 AXIS OK 138 P 67 QRSd 81 QRS 61 QT 350 T -20 QTc 460 Conclusion Sinus tachycardia...rate> 99
[2021-09-25 08:44] VITALS: BP 133/88; PULSE 102; RESP 14; TEMP 36.9; O2SAT 97
[2021-09-25] MEDS: Normal Saline 1,000 ML 1000 ML IV (08:55)
[2021-09-25] MEDS: Normal Saline Flush 10 ML SYR IVP (08:56)
--- NOTE | 2021-09-25 08:57 | ED.GENADUL_ITS ---
Discharge Plan Disposition Patient Disposition: HOME Condition: Stable Discharge Details Clinical Impression: Metallic taste Primary Care Provider: Raissa Mojica ED Provider: Noble Huerta Home Meds and New Rx's Prescriptions: Continued Mirena 1 EACH intrauterine device 1 ea Intrauterine q5yr Qty: 1 RF: 0 valacyclovir 1 gram tablet 1,000 mg PO DAILY Qty: 90 RF: 4 acetylcysteine [NAC] 600 mg capsule 1,200 mg PO QAM RF: 0 acetylcysteine [NAC] 600 mg capsule 600 mg PO QHS RF: 0 quetiapine [Seroquel] 50 mg tablet 125 mg PO QHS RF: 0 No Action lithium carbonate 300 mg tablet extended release 300 mg PO BID RF: 0 Discharge Instructions Additional Instructions: your blood work including lithium level did not show concerning findings at this time discuss with your prescribed what dose of lithium to take if you feel more ill, have difficulty breathing, severe abdominal pain return to the emergency department Medical Decision Making 31 yo female with hx of bipolar on lithium comes in with complaints of a metallic taste in her mouth and noticing when she tries to read up close things seem blurry. She states she has had this for a week or so and that her industrial psychology professor decreased her dose of lithium to 300mg bid from 300mg in the am and 450 at night. She has not had lithium in 2 days per patient and she had a lithium level ordered but unfortunately lab couldn't draw her today so was referred here. She has had some abdominal cramping and feels she is urinating more often, denies dysuria. She is in no distress on exam. She is caox4 with clear speech, no abdominal tenderness, no focal neuro deficits, no tremor or drowsiness. She has had some body aches. Given her being on lithium concern for possible lithium toxicity, will check level along with tsh and cmp and also evaluate for covid. patient's labs unremarkable, mild increase in tsh not unexpected from being on lithium and not clinically having symptoms of hypothyroidism. She is sleeping on reassessment and awakens easily. She is stable for discharge and advised to f/u with her mental health provider to discuss her lithium dosing, return precautions given Differential Diagnosis Differential Diagnosis: covid, lithium toxicity, Lab Data Lab results reviewed: Yes I reviewed the patient's lab results. ECG Data Attestation: I personally reviewed and interpreted this ECG (s) as follows: Prior ECG tracings: not available for review Interpretation: sinus tachycardia, rate of 103, pr 138 no acute ischemic findings HPI General Mode of arrival: ambulatory . Date/Time Provider Initiated Documentation: 09/25/21 08:31 . Limitations to Documentation: no limitations . Information obtained by: patient . History of Present Illness 31 year old F presents to the emergency department with the chief complaint of metallic taste in mouth, described as moderate, Patient started experiencing this week(s) (1) and it has been constant. No relieving factors improve symptom(s), No exacerbating factors reported . Patient notes other (fatigue, body aches). Patient did receive the following treatments prior to arrival, none Related Data Home Medications Medication Instructions Recorded Confirmed Mirena 1 ea INTRAUTERINE q5yr #1 ea 02/09/17 09/25/21 valacyclovir 1 gram tablet 1,000 mg PO DAILY #90 tab 02/03/21 09/25/21 acetylcysteine [NAC] 1,200 mg PO QAM 09/25/21 09/25/21 acetylcysteine [NAC] 600 mg PO QHS 09/25/21 09/25/21 lithium carbonate 300 mg PO BID 09/25/21 09/25/21 quetiapine [Seroquel] 125 mg PO QHS 09/25/21 09/25/21 Previous Rx's Medication Instructions Recorded valacyclovir 1 gram tablet 1,000 mg PO DAILY #90 tab 02/03/21 Allergies Allergy/AdvReac Type Severity Reaction Status Date / Time No Known Drug Allergies Allergy Verified 09/25/21 08:48 General Stated Complaint: GenMedical NIRAV: 3 Review of Systems All systems reviewed & are unremarkable except as noted in HPI and below Constitutional Constitutional: Denies chills and Denies fever(s) Cardiovascular Cardiovascular: Denies chest pain and Denies dyspnea Respiratory Respiratory: Denies cough and Denies dyspnea Gastrointestinal Gastrointestinal: Denies nausea and Denies vomiting Genitourinary Genitourinary: Denies dysuria Musculoskeletal Musculoskeletal: Denies joint swelling [facility] Medical History Bipolar disorder Generalized anxiety disorder with panic attacks Genital herpes IUD surveillance Mirena IUD inserted 02/09/17 Substance use disorder Surgical History No significant past surgical history Family History Mother No problems noted. Father Heart disease Myocardial infarction x 4 Maternal Grandfather , 70'S No problems noted. Paternal Grandfather , 99 No problems noted. Maternal Grandmother , late 70's Diabetes Paternal Grandmother No problems noted. 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 [place] Pets and animals: No Sexually active: Yes Do you think of yourself as: straight/heterosexual Current gender identity: female What is your relationship status?: never How often do you talk on the phone with friends or family?: three or more times per week How often do you get together with friends or relatives?: three or more times per week Do you belong to any clubs or organized social groups?: yes Panel score (0-1 are the most socially isolated patients): 2 What type of physical activity do you participate in: walking and other Details: [employer] Duration: 30-45 minutes/day Frequency: daily Brit/Jainism: No preference Special brit needs: No Seatbelt use: always Helmet use: Yes Helmet use: always Drive intox or ride w/intox stacker driver: No Do you feel safe at home: Yes Do you feel safe in your relationship?: Yes Female Reproductive History Menstrual control method: progestin IUCD History History 0 Para Hx # Term Pregnancies Multiple births Hx # Pregnancies Ectopic pregnancies AB induced Hx Number of Living Children AB spontaneous Exam Const General: no acute distress Orientation: alert HENMT Head: normal to inspection Ears: external ears normal General nose exam: external nose normal Mouth: moist mucous membranes Eyes General: appearance normal, both eyes and all related structures Neck Neck: normal visual inspection Resp Effort & Inspection: normal respiratory effort and able to speak in complete sentences Cardio Rate: regular rate GI Palpation: soft and nontender Skin General skin exam: no rashes or lesions noted Neuro General: patient alert and patient oriented x3 Extrem General: normal to inspection Psych Mental Status: mental status grossly normal Course Vital Signs Vital signs: Vital Signs Temperature 36.9 C 09/25/21 08:44 Pulse 102 H 09/25/21 08:44 Respiratory Rate 14 09/25/21 08:44 Blood Pressure 133/88 09/25/21 08:44 Pulse Oximetry 97 09/25/21 08:44 Temperature 36.9 C 09/25/21 08:44 Temperature Source Temporal Artery Scan 09/25/21 08:44 Pulse 102 H 09/25/21 08:44 Respiratory Rate 14 09/25/21 08:44 Respiratory Effort Non-Labored 09/25/21 08:47 Blood Pressure 133/88 09/25/21 08:44 Blood Pressure Position Sitting 09/25/21 08:44 Pulse Oximetry 97 09/25/21 08:44 Oxygen Delivery Method Room Air 09/25/21 08:44 Oxygen Flow Rate 0 09/25/21 08:44 Pain Level 0 09/25/21 08:44 PAWSS Have you Been Recently Intoxicated or Drunk Within the Last 30 days?: No Have you Ever Experienced Previous Episodes of Alcohol Withdrawal?: No Have you ever Experienced Withdrawal Seizures?: No Have you ever Experienced Delirium Tremens(DT)s?: No Have you ever undergone Alcohol Rehabilitation Treatment (i.e, inpt ot outpatient treatment programs)?: No Have you ever Experienced Blackouts?: No Have you ever Combined Alcohol with other Downers within the last 90 days?: No Have you ever Combined Alcohol with any other Substance of Abuse during the last 90 days?: No Positive Blood Alcohol level on Presentation? [PCS.BAL]: No Evidence of Increased Autonomic Activity (i.e. HR>120, tremor, sweating, agitation, nausea)?: No Result: 0
[2021-09-25 09:01] VITALS: RESP 14
[2021-09-25 09:02] LABS: Source Nasal/Nares
[2021-09-25 09:06] LABS: Abs Immature Grans 0.03 10^3/uL (0.0-0.06); Absolute Basophil Count 0.05 10^3/uL (0.0-0.2); Absolute Eosinophil Count 0.23 10^3/uL (0.0-0.7); Absolute Lymphocyte Count 1.64 10^3/uL (1.2-3.4); Absolute Monocyte Count 0.52 10^3/uL (0.1-0.8); Absolute Neutrophil Count 4.42 10^3/uL (1.2-6.7); Basophils % 0.7; Eosinophils % 3.3; HCT 42.1 % (36.0-46.0); HGB 13.7 g/dL (11.2-15.7); Immature Grans % 0.4; Lymphocytes % 23.8; MCH 31.1 pg (27.0-33.0); MCHC 32.5 % (32.0-36.0); MCV 95.5 fL (80-95); MPV 9.9 fL (8.0-11.0); Monocytes % 7.5; Neutrophils % 64.3; Nucleated RBC 0 %; Platelet Count 225 10^3/uL (130-400); RBC 4.41 10^6/uL (3.93-5.22); RDW 13.4 % (11.7-14.6); RDW-SD 47.8 fL; WBC 6.89 10^3/uL (4.4-10.8)
[2021-09-25 09:21] LABS: ALT 21 U/L (14-59); AST 13 U/L (15-37); Albumin 3.8 g/dL (3.4-5.0); Alkaline Phosphatase 77 U/L (46-116); Anion Gap 10.3 mmol/L (3-11); BUN 14 mg/dL (7-18); Bilirubin, Total 0.2 mg/dL (0.2-1.0); CO2 25.7 mmol/L (21.0-32.0); CREATININE 0.9 mg/dL (0.55-1.02); Calcium 8.7 mg/dL (8.5-10.1); Chloride 104 mmol/L (98-107); Glucose 107 mg/dL (74-106); Magnesium 1.9 mg/dL (1.8-2.4); Potassium 3.5 mmol/L (3.5-5.1); Sodium 140 mmol/L (136-145); Total Protein 7.3 g/dL (6.4-8.2)
[2021-09-25 09:27] LABS: Lithium 0.3 mmol/l (0.6-1.2)
[2021-09-25 09:44] LABS: COVID-19 PCR Negative (Negative)
[2021-09-25 10:13] LABS: TSH (W/Ref FT4) 5.72 uIU/mL (0.36-3.74)
[2021-09-25 10:29] VITALS: BP 106/65; PULSE 83; TEMP 37.6; O2SAT 99
[2021-09-25 10:33] LABS: FREE T4 0.91 ng/dL (0.76-1.46)
== END 2021-09-25 10:41 | disposition home or self-care (01) ==
PROVIDERS: Emergency Provider Emergency Medicine; PCP Nurse Practitioner Family
DX: R43.8 Other disturbances of smell and taste (principal); H53.8 Other visual disturbances; Z79.899 Other long term (current) drug therapy; F31.9 Bipolar disorder, unspecified; R35.0 Frequency of micturition
CPT/HCPCS: 36415; 80053; 87635; 93005; 96360; 99284; 80178; 81003; 83735; 84439; 84443; 85025; 93010; 99283

== ENCOUNTER 2022-12-23 10:05 | Emergency (ER) | payer OTHER, SELFPAY ==
[2022-12-23 10:21] VITALS: BP 106/69; PULSE 92; RESP 18; TEMP 37.3; O2SAT 98
--- NOTE | 2022-12-23 10:34 | ED.GENADUL_ITS ---
Discharge Plan Discharge Details Chief Complaint: PsychEval Clinical Impression: Depression, Mood disorder Primary Care Provider: Raissa Mojica ED Provider: Noble Huerta Home Meds and New Rx's Prescriptions: No Action Mirena 1 EACH intrauterine device 1 ea Intrauterine q5yr Qty: 1 acetylcysteine [NAC] 600 mg capsule 1,200 mg PO QAM Patient Comments: Take 1 capsule by mouth twice a day for one week, increase to two in the morning and one in evening acetylcysteine [NAC] 600 mg capsule 600 mg PO QHS Patient Comments: Take 1 capsule by mouth twice a day for one week, increase to two in the morning and one in evening gabapentin 100 mg capsule 100 mg PO TID Patient Comments: Take 1 capsule by mouth three times a day for anxiety, can decrease to one capsules twice a day if toelrated. Vraylar 4.5 mg capsule 4.5 mg PO QHS Patient Comments: Take 1 capsule by mouth once a day valacyclovir 1 gram tablet 1,000 mg PO DAILY Rx Instructions: TAKE 1 TABLET BY MOUTH DAILY Medical Decision Making <AMANDA Santoyo - Last Filed: 12/24/22 08:10> This 32-year-old female presents with report of suicidal ideation last evening with plan to take her sleeping medication, her boyfriend intervened Here she was still reporting suicidal ideation and history of regular alcohol use so blood work was initiated, patient had a blood alcohol level of 86 and positive for THC and cocaine which she admitted to She was evaluated by mental health and she is placed on voluntary placement At time of reassessment at 1600, patient has been calm and cooperative but she now is requesting discharge home, she is no longer feeling suicidal and would like to be discharged and care plan, mental health provider in route Medical Records Medical records reviewed: Yes I reviewed the patient's medical records. <Luz Elena Patel NP - Last Filed: 12/23/22 22:43> This 32-year-old female presents with report of suicidal ideation last evening with plan to take her sleeping medication, her boyfriend intervened Here she was still reporting suicidal ideation and history of regular alcohol use so blood work was initiated, patient had a blood alcohol level of 86 and positive for THC and cocaine which she admitted to She was evaluated by mental health and she is placed on voluntary placement At time of reassessment at 1600, patient has been calm and cooperative but she now is requesting discharge home, she is no longer feeling suicidal and would like to be discharged and care plan, mental health provider in route 1702: Care assumed from provider (AMANDA Santoyo) Please see their initial HPI, PE, and documentation. Discussed patient details and case and pending workup and disposition. Patient is hemodynamically stable, and alert and oriented. At the time of signout patient has agreeable to staying for voluntary placement for inpatient psych. 2030: Patient requesting her p.m. medication which we do not have here at this facility presently I did okay for her mom to bring in her home meds and we can administer it here for her. Patient has remained calm and cooperative throughout the remainder of her stay. 2242: Care to be handed off to oncoming provider Abdiaziz Damico DO ER attending. Lab Data Lab results reviewed: Yes I reviewed the patient's lab results. Labs: Laboratory Tests Range/Units 12/23/22 12/23/22 12/23/22 10:41 10:41 11:02 WBC (4.4-10.8) 10^3/uL RBC (3.93-5.22) 10^6/uL Hgb (11.2-15.7) g/dL Hct (36.0-46.0) % MCV (80-95) fL MCH (27.0-33.0) pg MCHC (32.0-36.0) % RDW (11.7-14.6) % Plt Count (130-400) 10^3/uL MPV (8.0-11.0) fL Immature Gran % Neutrophils % Lymphocytes % Monocytes % Eosinophils % Basophils % Nucleated RBC % (0.0-0.3) % Absolute Neutrophils (1.2-6.7) 10^3/uL Absolute Lymphocytes (1.2-3.4) 10^3/uL Absolute Monocytes (0.1-0.8) 10^3/uL Absolute Eosinophils (0.0-0.7) 10^3/uL Absolute Basophils (0.0-0.2) 10^3/uL Sodium (136-145) mmol/L 143 Potassium (3.5-5.1) mmol/L 3.9 Chloride (98-107) mmol/L 106 Carbon Dioxide (21.0-32.0) mmol/L 26.5 Anion Gap (3-11) mmol/L 10.5 BUN (7-18) mg/dL 4 L Creatinine (0.55-1.02) mg/dL 0.9 Est GFR (CKD-EPI 2020) (mL/min/1.73m2) 88.20 Glucose (74-106) mg/dL 96 Calcium (8.5-10.1) mg/dL 9.0 Total Bilirubin (0.2-1.0) mg/dL 0.3 AST (15-37) U/L 12 L ALT (14-59) U/L 20 Alkaline Phosphatase (46-116) U/L 72 Total Protein (6.4-8.2) g/dL 7.6 Albumin (3.4-5.0) g/dL 4.2 Urine Color (Yellow) Yellow Urine Clarity (Clear) Clear Urine pH (5-8) 7.0 Ur Specific [place] (1.005-1.025) 1.020 Urine Protein (Negative) mg/dL 30 H Urine Ketones (Negative) mg/dL Negative Urine Blood (Negative) Negative Urine Nitrite (Negative) Negative Urine Bilirubin (Negative) Negative Urine Urobilinogen (Up to 0.2) mg/dL 0.2 Ur Leukocyte Esterase (Negative) Negative Urine RBC (0-2) HPF Negative Urine WBC (0-5) HPF Negative Ur Epithelial Cells (Negative) HPF Moderate Urine Crystals (Negative) HPF Negative Urine Bacteria (Negative) HPF Rare Urine Casts (Negative) LPF 0-2 Hyaline Urine Mucus (Negative) Negative Ur Culture Indicated? No Urine Glucose (Negative) mg/dL Negative Salicylates (<2.8) mg/dL Urine Opiates Screen (Negative) Negative Urine Methadone Screen (Negative) Negative Acetaminophen (10-30) ug/mL Ur Barbiturates Screen (Negative) Negative Ur Tricyclics Screen (Negative) Negative Ur Amphetamines Screen (Negative) Negative U Benzodiazepines Scrn (Negative) Negative Urine Cocaine Screen (Negative) Positive A Ur THC Screen (Negative) Positive A Ethyl Alcohol (<10) mg/dL 86.2 H COVID-19 Source SARS-CoV-2 (PCR) (Negative) Range/Units 12/23/22 12/23/22 12/23/22 11:02 11:02 11:02 WBC (4.4-10.8) 10^3/uL 5.62 RBC (3.93-5.22) 10^6/uL 4.77 Hgb (11.2-15.7) g/dL 14.5 Hct (36.0-46.0) % 43.4 MCV (80-95) fL 91 MCH (27.0-33.0) pg 30.4 MCHC (32.0-36.0) % 33.4 RDW (11.7-14.6) % 11.8 Plt Count (130-400) 10^3/uL 260 MPV (8.0-11.0) fL 10.0 Immature Gran % 0.4 Neutrophils % 60.9 Lymphocytes % 28.6 Monocytes % 7.8 Eosinophils % 1.6 Basophils % 0.7 Nucleated RBC % (0.0-0.3) % 0.0 Absolute Neutrophils (1.2-6.7) 10^3/uL 3.42 Absolute Lymphocytes (1.2-3.4) 10^3/uL 1.61 Absolute Monocytes (0.1-0.8) 10^3/uL 0.44 Absolute Eosinophils (0.0-0.7) 10^3/uL 0.09 Absolute Basophils (0.0-0.2) 10^3/uL 0.04 Sodium (136-145) mmol/L Potassium (3.5-5.1) mmol/L Chloride (98-107) mmol/L Carbon Dioxide (21.0-32.0) mmol/L Anion Gap (3-11) mmol/L BUN (7-18) mg/dL Creatinine (0.55-1.02) mg/dL Est GFR (CKD-EPI 2020) (mL/min/1.73m2) Glucose (74-106) mg/dL Calcium (8.5-10.1) mg/dL Total Bilirubin (0.2-1.0) mg/dL AST (15-37) U/L ALT (14-59) U/L Alkaline Phosphatase (46-116) U/L Total Protein (6.4-8.2) g/dL Albumin (3.4-5.0) g/dL Urine Color (Yellow) Urine Clarity (Clear) Urine pH (5-8) Ur Specific [place] (1.005-1.025) Urine Protein (Negative) mg/dL Urine Ketones (Negative) mg/dL Urine Blood (Negative) Urine Nitrite (Negative) Urine Bilirubin (Negative) Urine Urobilinogen (Up to 0.2) mg/dL Ur Leukocyte Esterase (Negative) Urine RBC (0-2) HPF Urine WBC (0-5) HPF Ur Epithelial Cells (Negative) HPF Urine Crystals (Negative) HPF Urine Bacteria (Negative) HPF Urine Casts (Negative) LPF Urine Mucus (Negative) Ur Culture Indicated? Urine Glucose (Negative) mg/dL Salicylates (<2.8) mg/dL 3.2 Urine Opiates Screen (Negative) Urine Methadone Screen (Negative) Acetaminophen (10-30) ug/mL < 2 Ur Barbiturates Screen (Negative) Ur Tricyclics Screen (Negative) Ur Amphetamines Screen (Negative) U Benzodiazepines Scrn (Negative) Urine Cocaine Screen (Negative) Ur THC Screen (Negative) Ethyl Alcohol (<10) mg/dL COVID-19 Source Nasal/Nares SARS-CoV-2 (PCR) (Negative) Negative HPI <AMANDA Santoyo - Last Filed: 12/24/22 08:10> General Date/Time Provider Initiated Documentation: 12/23/22 10:14 . HPI Narrative: This 32-year-old female presents with report of suicidal ideation and longstanding depression. Last night she reportedly attempted to overdose on her Seroquel remaining, she was previously prescribed this and switch to Vraylar several months ago. She states that she did not take any of these medications as her boyfriend intervened. She also consumed lots of vodka last evening, she states she typically drinks 3-4 times a week, she denies any history of alcohol withdrawal. She has undergone treatment on several occasions for alcohol withdrawal per patient. She denies any current pain complaints. She is still feeling suicidal and has a plan to overdose on her medications. She denies any chance of . Related Data Home Medications Medication Instructions Recorded Confirmed levonorgestrel 21 mcg/24 hours (8 1 ea intrauterine q5yr #1 ea 02/09/17 12/23/22 yrs) 52 mg intrauterine device (Mirena) acetylcysteine 600 mg capsule (NAC) 1,200 mg PO QAM 09/25/21 12/23/22 acetylcysteine 600 mg capsule (NAC) 600 mg PO QHS 09/25/21 12/23/22 cariprazine 4.5 mg capsule 4.5 mg PO QHS 12/23/22 12/23/22 (Vraylar) gabapentin 100 mg capsule 100 mg PO TID 12/23/22 12/23/22 valacyclovir 1 gram tablet 1,000 mg PO DAILY 12/23/22 12/23/22 Allergies Allergy/AdvReac Type Severity Reaction Status Date / Time No Known Drug Allergies Allergy Verified 12/26/21 14:03 lithium AdvReac [place] Verified 12/26/21 14:03 sluggish and cloudy General Stated Complaint: PsychEval NIRAV: 2 PFSH <AMANDA Santoyo - Last Filed: 12/24/22 08:10> All Active Problems Depression (Chronic) Mood disorder (Acute) Bipolar disorder (Chronic) Generalized anxiety disorder with panic attacks (Chronic) IUD surveillance (Chronic) Mirena IUD inserted 02/09/17 Genital herpes (Chronic) Cigarette smoker (Chronic) Medical History Substance use disorder Surgical History No significant past surgical history Family History Mother No problems noted. Father Heart disease Myocardial infarction x 4 Maternal Grandfather , 70'S No problems noted. Paternal Grandfather , 99 No problems noted. Maternal Grandmother , late 70's Diabetes Paternal Grandmother No problems noted. 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 [place] Pets and animals: No Sexually active: Yes Do you think of yourself as: straight/heterosexual Current gender identity: female What is your relationship status?: never How often do you talk on the phone with friends or family?: three or more times per week How often do you get together with friends or relatives?: three or more times per week Do you belong to any clubs or organized social groups?: yes Panel score (0-1 are the most socially isolated patients): 2 What type of physical activity do you participate in: walking and other Detail s: [employer] Duration: 30-45 minutes/day Frequency: daily Brit/Tenriism: No preference Special brit needs: No Seatbelt use: always Helmet use: Yes Helmet use: always Drive intox or ride w/intox ambulance driver: No Do you feel safe at home: Yes Do you feel safe in your relationship?: Yes Female Reproductive History Menstrual control method: progestin IUCD History History 0 Para Hx # Term Pregnancies Multiple births Hx # Pregnancies Ectopic pregnancies AB induced Hx Number of Living Children AB spontaneous Exam <AMANDA Santoyo Last Filed: 12/24/22 08:10> Const General: cooperative, comfortable and no acute distress Eyes Sclera: sclerae normal Resp Effort & Inspection: normal respiratory effort Auscultation: clear to auscultation bilaterally Cardio Rate: regular rate Rhythm: regular rhythm GI Inspection: normal to inspection Skin General skin exam: no rashes or lesions noted Neuro General: patient alert and patient oriented x3 Cranial Nerves: CN's II-XI intact bilaterally and tongue midline Cognition: normal cognition Speech: speech normal Gait: normal gait Extrem General: normal to inspection Psych Appearance: grossly normal and well kempt Speech and Movement: speech and movement normal Attitude: cooperative Thought Content: suicidality Course <AMANDA Santoyo - Last Filed: 12/24/22 08:10> Vital Signs Vital signs: Vital Signs Temperature 37.3 C 12/23/22 10:21 Pulse 92 H 12/23/22 10:21 Respiratory Rate 18 12/23/22 10:21 Blood Pressure 106/69 12/23/22 10:21 Pulse Oximetry 98 12/23/22 10:21 Temperature 37.3 C 12/23/22 10:21 Temperature Source Tympanic 12/23/22 10:21 Pulse 92 H 12/23/22 10:21 Respiratory Rate 18 12/23/22 10:21 Respiratory Effort Normal 12/23/22 10:25 Blood Pressure 106/69 12/23/22 10:21 Blood Pressure Position Supine 12/23/22 10:21 Pulse Oximetry 98 12/23/22 10:21 Oxygen Delivery Method Room Air 12/23/22 10:21 Oxygen Flow Rate 0 12/23/22 10:21 Pain Level 0 12/23/22 10:21 Sign Out <AMANDA Santoyo - Last Filed: 12/24/22 08:10> Sign Out Data: Sign Out Comment: pending MH reassessment, voluntary placement status for SI, m ay dc with CP at discretion of MH provider Last updated by Cari Hicks PA at 12/23/22 16:03 Sign Out Comment: Pending Voluntary psych placement. Here with Suicidal ideations of overdosing on medications. Has been calm and cooperative. Last updated by Luz Elena Patel NP at 12/23/22 22:42 Sign Out Comment: Suicidal ideations, here voluntarily, no interventions needed during the night. Last updated by Mahad Damico DO at 12/24/22 06:58 PAWSS <AMANDA Santoyo - Last Filed: 12/24/22 08:10> Have you Been Recently Intoxicated or Drunk Within the Last 30 days?: Yes Have you Ever Experienced Previous Episodes of Alcohol Withdrawal?: No Have you ever Experienced Withdrawal Seizures?: No Have you ever Experienced Delirium Tremens(DT)s?: No Have you ever undergone Alcohol Rehabilitation Treatment (i.e, inpt ot outpatient treatment programs)?: No Have you ever Experienced Blackouts?: No Have you ever Combined Alcohol with other Downers within the last 90 days?: No Have you ever Combined Alcohol with any other Substance of Abuse during the last 90 days?: No Positive Blood Alcohol level on Presentation? [PCS.BAL]: No Evidence of Increased Autonomic Activity (i.e. HR>120, tremor, sweating, agitation, nausea)?: No Result: 1 <Luz Elena Patel NP - Last Filed: 12/23/22 22:43> Result: 1
[2022-12-23 10:55] LABS: Bilirubin Negative (Negative); Blood Negative (Negative); Clarity Clear (Clear); Glucose Negative (Negative); Ketones Negative (Negative); Leukocyte Esterase Negative (Negative); Nitrite Negative (Negative); Urobilinogen 0.2 mg/dL (Up to 0.2)
[2022-12-23 11:03] LABS: Bacteria Rare HPF (Negative); C & S Indicated? No; Casts 0-2 Hyaline LPF (Negative); Crystals Negative HPF (Negative); Epithelial Cells Moderate HPF (Negative); Mucus Negative (Negative); RBC Negative HPF (0-2); WBC Negative HPF (0-5)
[2022-12-23 11:10] LABS: Source Nasal/Nares
[2022-12-23 11:13] LABS: *AMPHETAMINES SCREEN URINE Negative (Negative); *BARBITURATES SCREEN URINE Negative (Negative); *BENZODIAZEPINES SCREEN URINE Negative (Negative); Cannabinoids THC Positive (Negative); Cocaine Screen,Urine Positive (Negative); METHADONE URINE SCREEN Negative (Negative); OPIATES URINE SCREEN Negative (Negative)
[2022-12-23 11:19] LABS: Abs Immature Grans 0.02 10^3/uL (0.0-0.06); Absolute Basophil Count 0.04 10^3/uL (0.0-0.2); Absolute Eosinophil Count 0.09 10^3/uL (0.0-0.7); Absolute Lymphocyte Count 1.61 10^3/uL (1.2-3.4); Absolute Monocyte Count 0.44 10^3/uL (0.1-0.8); Absolute Neutrophil Count 3.42 10^3/uL (1.2-6.7); Basophils % 0.7; Eosinophils % 1.6; HCT 43.4 % (36.0-46.0); HGB 14.5 g/dL (11.2-15.7); Immature Grans % 0.4; Lymphocytes % 28.6; MCH 30.4 pg (27.0-33.0); MCHC 33.4 % (32.0-36.0); MCV 91 fL (80-95); Monocytes % 7.8; Neutrophils % 60.9; Platelet Count 260 10^3/uL (130-400); RBC 4.77 10^6/uL (3.93-5.22); RDW 11.8 % (11.7-14.6); RDW-SD 39.3 fL; WBC 5.62 10^3/uL (4.4-10.8)
[2022-12-23 11:26] LABS: Tricyclic Antidepressants Negative (Negative)
[2022-12-23 11:38] LABS: ALT 20 U/L (14-59); AST 12 U/L (15-37); Albumin 4.2 g/dL (3.4-5.0); Alkaline Phosphatase 72 U/L (46-116); Anion Gap 10.5 mmol/L (3-11); BUN 4 mg/dL (7-18); Bilirubin, Total 0.3 mg/dL (0.2-1.0); CO2 26.5 mmol/L (21.0-32.0); CREATININE 0.9 mg/dL (0.55-1.02); Chloride 106 mmol/L (98-107); ETHANOL BLOOD 86.2 mg/dL (<10); Glucose 96 mg/dL (74-106); Potassium 3.9 mmol/L (3.5-5.1); Sodium 143 mmol/L (136-145); Total Protein 7.6 g/dL (6.4-8.2)
[2022-12-23 11:41] LABS: Salicylate 3.2 mg/dL (<2.8)
[2022-12-23 11:46] LABS: Acetaminophen < 2 ug/mL (10-30)
[2022-12-23 11:54] LABS: COVID-19 PCR Negative (Negative)
--- NOTE | 2022-12-23 12:41 | PDOC.MHCN_ITS ---
Date of service: 12/23/22 Time of Service: 12:41 PHQ-9 Over the last 2 weeks, how often have you been bothered by any of the following problems? 1. Little interest or pleasure in doing things: nearly every day 2. Feeling down, depressed, or hopeless: nearly every day 3. Trouble falling or staying asleep, or sleeping too much: nearly every day 4. Feeling tired or having little energy: several days 5. Poor appetite or overeating: several days 6. Feeling bad about yourself - or that you are a failure or have let yourself and your family down: several days 7. Trouble concentrating on things, such as reading the newspaper or watching television: several days 8. Moving or speaking so slowly that other people could have noticed? - Or the opposite - being so fidgety or restless that you have been moving around a lot more than usual: more than half the days 9. Thoughts that you would be better off or of hurting yourself in some way: more than half the days Total score: 17 If you checked off any problems, how difficult have these problems made it for you to do your work, take care of things at home, or get along with other people?: extremely difficult Source: Developed by Drs. Wilber Kc, Amarilys Taylor, Marques Decker and colleagues, with an educational sariah from [employer]. Suicide Severity Rate CSSRS Have you wished you were or wished you could go to sleep and not wake up?: Yes Have you actually had any thoughts of killing yourself?: Yes CSSRS2 Have you been thinking about how you might do this?: Yes Have you had these thoughts and had some intention of acting on them?: Yes Have you started to work out or worked out the details of how to kill yourself? Do you intend to carry out this plan?: Yes CSSRS3 Have you ever done anything, started to do anything or prepared to do anything to end your life?: Yes CSSRS4 Was this within the past three months?: Yes Screening Score Total Score: 8 Screening: Positive Mental Health Emergency Note Release [facility] release signed:: Yes Reason for Visit Client is a 32 year old, single, female who lives with her boyfriend in [facility]. 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 Client outreached to this clinician this am asking for help as she attempted to overdose on her Seroquel last night and that was interrupted by her boyfriend who locked the medications up in his gun cabinet. In the last 2 weeks has the pt presented for ES prior to today?: Unknown Client Information Client is: Adult Outpatient Well Housed: Yes Non Suicidal Self Injury Current: No History: No Safety Risk/Harm to Self or Others Current Ideation to Harm Self or Others: No Risk: Does risk to harm exist?: yes. Access to means: Yes. Types of Means: Medication. Counseling provided: Yes Risk: Moderate Risk Duty to warn indicated: No Asssessment/Mental Status Appearance: Unremarkable Attitude: Cooperative Behavior: Unremarkable Speech: Normal Affect: Flat and Cogruent with mood Mood: Stressed, Depressed and Anxious Thought process: Goal directed Hallucinations: No Delusions: No Attention: Unremarkable Perception: Not impaired Orientation: Fully orientated Memory: Intact Insight: Good Judgement: Good Neurovegetative Symptoms Sleep: Decrease Appetitie: Decrease Interests: Decrease Energy: Decrease Libido: Not applicable Substance Use: ETOH dependence Drug Issues: Dependence Do you use nicotine?: Yes Have you used substances in the last 7 days?: yes, ETOH daily 1-6 beers and cocaine as well as use of cocaine 1.5 grams a day and last use was 2 days ago. Additional Issues: Assaultive/Threatening Behavior: No Medical Concerns: No Client engaged in active self harm w/weapon: No Threatening to run away: No Child reported abuse/neglect: No Voluntarily presenting for services: Yes Domestic violence is a concern: No Extreme Psychosis or extreme behavior is present: No Impression Client presents to [facility] seeking voluntary admission for a higher level of care after an interrupted suicide attempt on 12.22.22. She is diagnosed with bipolar disorder and [facility] and has a therapist Angel Triana. Client presents sitting maria luz cross on her bed with has pink tunic on and in standard hospital clothes. She has her head hung low and this clinician can see that she is often trying not to cry. The client has 2 previous suicide attempts one was October of 2018 via cutting her wrists and the other was approximately 6 years ago when she tried to of carbon monoxide. Client stated that her intent has lessened since arriving to the ED and when ask why she said because you are here and my mom and best friend. Client admits to not consistently tasking her medications as prescribed and understands that this could be a huge participator to her unstable MH now. Client needs a reset to get back on her medications so that she can return to her community. Protective factors for the client is she is already aware and has utilized 988 including last night, is actively engaged with her treatment providers, has employment, and natural supports. She identifies her strengths as being helpful, kind, and sticks to her her beliefs. Resources Reosurces reviewed and given:: Other Plan/Disposition Recommended Disposition: Hospitalization facilities contacted. Plan: Client will remain at [facility] pending acceptance to a treatment facility. We did discuss a crisis bed however, due to her active drinking it was her treatment teams opinion that a hospital setting may be best. Person reported agreement to plan: Yes Facilities contacted if Applicable [facility] Not accepted, Other [facility] Not accepted, [facility] Not accepted, No bed available, [facility] Not accepted, Other Reports/communication Outcome discussed with: ED/Personnel
--- NOTE | 2022-12-23 16:53 | CMSP_ITS ---
- If Service Date Differs Date of service: 12/23/22 Time of Service: 16:53 Care Management Safety Plan Status: Voluntary - Reason for Wait Reason for Wait: Inpatient Admission CHIEF COMPLAINT: Simon presents in the ED seeking a voluntary psych hospitalization. Per [facility], she has a diagnosis of Bipolar Disorder and sees Dea Guzman, [facility], for med management and Angel Triana for therapy. Simon reports worsening suicidal ideation with an attempt last evening via overdose which was interrupted by her boyfriend. She met with Layla, [facility] crisis screener, for an assessment today. [facility] is faxing referrals to [facility], [facility], [facility] and [facility] for review. Simon will remain at [facility] and will be reassessed by [facility] daily until a voluntary placement is secured for her. CM will continue to follow. VOLUNTARY FOR INPATIENT PSYCHIATRIC STABILIZATION. Patient is appropriate in all interactions since arriving at [facility]; Pt has demonstrated appropriate coping and communication skills, has articulated his or her needs and concerns and is fully engaged during staff interactions. A decentralized huddle is done with Miriam, nursing supervisor quilting, and ED staff. Safety plan has been established with patient, and care team, to adhere to patient goals, identify restrictions based on behavioral status, address nutrition, and determine allowed personal belongings, tools for hygiene and personal care. Determine level of activity including ambulation, level of supervision, visitors, and determine privileges based on behaviors and level of engagement by pt. SAFETY PLAN: 1. Will remain on suicide precautions. In Paper Clothes. 2. Will remain in room under direct supervision of one-on-one staff at all times provided by CPSO, DUPLICATING MACHINE MECHANIC, SUPERVISOR MOLDING agency service coordinator. 3. May have paper cups, plates, finger foods as well as a cardboard spoon with which to eat meals. 4. Follow [facility] Management of the Admitted Behavioral Health Patient policy. 5. Shower permitted with escort at RN discretion. 6. No personal belongings with the exception of a caricature drawing, knit hat, and paperback playbook. Other soft items permitted at RN discretion. 7. Visitors: Per [facility] visitor policy and at RN discretion. 8. Activities: soft cart items, music tablet, television and other activities at RN discretion. 9. Bathroom privileges with escort in the ED, available in room without limitation on M/S. 10. Phone: May use [employer] hospital phone at RN discretion. 11. Due to VOLUNTARY status, if patient wishes to leave [facility], staff will contact [facility] Crisis Screener ([phone]) and On-Call Convention Services Manager ([phone]) as soon as possible. In the event of elopement, notify [facility] Police ([phone]). Patient is currently voluntarily at [facility] and seeking inpatient admission when a bed becomes available. [facility] Frontline Finishing Tunnel Operator will continue seeking placement. Please contact the Marketing Content Coordinator Convention Services Manager ([phone]) and [facility] Finishing Tunnel Operator ([phone]) for any needed changes in the Safety Plan. Safety plan has been provided to interdepartmental care team.
--- NOTE | 2022-12-23 16:53 | PDOC.CMSAFED ---
- If Service Date Differs Date of service: 12/23/22 Time of Service: 16:53 Care Management Safety Plan Status: Voluntary - Reason for Wait Reason for Wait: Inpatient Admission CHIEF COMPLAINT: Simon presents in the ED seeking a voluntary psych hospitalization. Per [facility], she has a diagnosis of Bipolar Disorder and sees Dea Guzman, YU, for med management and Angel Triana for therapy. Simon reports worsening suicidal ideation with an attempt last evening via overdose which was interrupted by her boyfriend. She met with Layla, [facility] crisis screener, for an assessment today. [facility] is faxing referrals to [facility], [facility], [facility] and [facility] for review. Simon will remain at [facility] and will be reassessed by [facility] daily until a voluntary placement is secured for her. CM will continue to follow. VOLUNTARY FOR INPATIENT PSYCHIATRIC STABILIZATION. Patient is appropriate in all interactions since arriving at [facility]; Pt has demonstrated appropriate coping and communication skills, has articulated his or her needs and concerns and is fully engaged during staff interactions. A decentralized huddle is done with Miriam, nursing division road supervisor, and ED staff. Safety plan has been established with patient, and care team, to adhere to patient goals, identify restrictions based on behavioral status, address nutrition, and determine allowed personal belongings, tools for hygiene and personal care. Determine level of activity including ambulation, level of supervision, visitors, and determine privileges based on behaviors and level of engagement by pt. SAFETY PLAN: 1. Will remain on suicide precautions. In Paper Clothes. 2. Will remain in room under direct supervision of one-on-one staff at all times provided by [employer], SALVAGE WINDER, CAUSTIC LIQUOR MAKER director of securities and real estate. 3. May have paper cups, plates, finger foods as well as a cardboard spoon with which to eat meals. 4. Follow [facility] Management of the Admitted Behavioral Health Patient policy. 5. Shower permitted with escort at RN discretion. 6. No personal belongings with the exception of a caricature drawing, knit hat, and paperback playbook. Other soft items permitted at RN discretion. 7. Visitors: Per [facility] visitor policy and at RN discretion. 8. Activities: soft cart items, music tablet, television and other activities at RN discretion. 9. Bathroom privileges with escort in the ED, available in room without limitation on M/S. 10. Phone: May use [employer] hospital phone at RN discretion. 11. Due to VOLUNTARY status, if patient wishes to leave [facility], staff will contact [facility] Crisis Screener ([phone]) and On-Call Conditioning Room Worker ([phone]) as soon as possible. In the event of elopement, notify [facility] Police ([phone]). Patient is currently voluntarily at [facility] and seeking inpatient admission when a bed becomes available. [facility] Frontline Freelance Digital Project Manager will continue seeking placement. Please contact the Road Advisor Conditioning Room Worker ([phone]) and [facility] Freelance Digital Project Manager ([phone]) for any needed changes in the Safety Plan. Safety plan has been provided to interdepartmental care team.
--- NOTE | 2022-12-23 21:55 | NUR.NOTE ---
Nursing Note: @ 2100 Vraylar 4.5mg po given from home stock.
--- NOTE | 2022-12-24 08:08 | W.EDPROG ---
Date of service: 12/24/22 Time of Service: 08:08 Medical Decision Making pt calm and cooperative, voluntary for depression/si. Will continue to monitor and stay in the ED until psych placement foud or beds become available at [facility]. Sign Out Sign Out Data: Sign Out Comment: pending reassessment, voluntary placement status for SI, may dc with CP at discretion of MH provider Last updated by Cari Hicks PA at 12/23/22 16:03 Sign Out Comment: Pending Voluntary psych placement. Here with Suicidal ideations of overdosing on medications. Has been calm and cooperative. Last updated by Luz Elena Patel NP at 12/23/22 22:42 Sign Out Comment: Suicidal ideations, here voluntarily, no interventions needed during the night. Last updated by Mahad Damico DO at 12/24/22 06:58 Discharge Plan Disposition Condition: Stable Discharge Details Chief Complaint: PsychEval Clinical Impression: Depression Primary Care Provider: Raissa Mojica ED Provider: Noble Huerta Home Meds and New Rx's Prescriptions: No Action Mirena 1 EACH intrauterine device 1 ea Intrauterine q5yr Qty: 1 acetylcysteine [NAC] 600 mg capsule 1,200 mg PO QAM Patient Comments: Take 1 capsule by mouth twice a day for one week, increase to two in the morning and one in evening acetylcysteine [NAC] 600 mg capsule 600 mg PO QHS Patient Comments: Take 1 capsule by mouth twice a day for one week, increase to two in the morning and one in evening gabapentin 100 mg capsule 100 mg PO TID Patient Comments: Take 1 capsule by mouth three times a day for anxiety, can decrease to one capsules twice a day if toelrated. Vraylar 4.5 mg capsule 4.5 mg PO QHS Patient Comments: Take 1 capsule by mouth once a day valacyclovir 1 gram tablet 1,000 mg PO DAILY Rx Instructions: TAKE 1 TABLET BY MOUTH DAILY
[2022-12-24] MEDS: valACYclovir 1,000 MG TAB 1000 MG PO (08:45)
[2022-12-24] MEDS: Gabapentin 100 MG CAP PO ×2 (08:45→14:18)
--- NOTE | 2022-12-24 09:28 | CMSP_ITS ---
- If Service Date Differs Date of service: 12/24/22 Time of Service: 09:28 Care Management Safety Plan Status: Voluntary - Reason for Wait Reason for Wait: Inpatient Admission VOLUNTARY FOR INPATIENT PSYCHIATRIC STABILIZATION. Patient is appropriate in all interactions since arriving at [facility]; Pt has demonstrated appropriate coping and communication skills, has articulated his or her needs and concerns and is fully engaged during staff interactions. Safety plan has been established with patient, and care team, to adhere to patient goals, identify restrictions based on behavioral status, address nutrition, and determine allowed personal belongings, tools for hygiene and personal care. Determine level of activity including ambulation, level of supervision, visitors, and determine privileges based on behaviors and level of engagement by pt. SAFETY PLAN: 1. Will remain on suicide precautions. In Paper Clothes. 2. Will remain in room under direct supervision of one-on-one staff at all times provided by CPSO, DENTAL ASSISTANT INSTRUCTOR, MANAGER REHAB pageant director. 3. May have paper cups, plates, finger foods as well as a cardboard spoon with which to eat meals. 4. Follow [facility] Management of the Admitted Behavioral Health Patient policy. 5. Shower permitted with escort at RN discretion. 6. No personal belongings with the exception of a caricature drawing, knit hat, and paperback playbook. Other soft items permitted at RN discretion. 7. Visitors: Per [facility] visitor policy and at RN discretion. 8. Activities: soft cart items, music tablet, television and other activities at RN discretion. 9. Bathroom privileges with escort in the ED, available in room without limitation on M/S. 10. Phone: May use [employer] hospital phone at RN discretion. 11. Due to VOLUNTARY status, if patient wishes to leave [facility], staff will contact [facility] Crisis Screener ([phone]) and On-Call Powerplant Operator ([phone]) as soon as possible. In the event of elopement, notify [place] Police ([phone]). Patient is currently voluntarily at [facility] and seeking inpatient admission when a bed becomes available. [facility] Frontline Firer Diesel Locomotive will continue seeking placement. Please contact the Online Producer Powerplant Operator ([phone]) and [facility] Firer Diesel Locomotive ([phone]) for any needed changes in the Safety Plan. Safety plan has been provided to interdepartmental care team.
[2022-12-24 09:30] VITALS: BP 105/71; PULSE 98; RESP 14; TEMP 36.7; O2SAT 97
--- NOTE | 2022-12-24 09:55 | PDOC.MHPN2 ---
Date of service: 12/24/22 Time of Service: 09:55 PHQ-9 Over the last 2 weeks, how often have you been bothered by any of the following problems? 1. Little interest or pleasure in doing things: nearly every day 2. Feeling down, depressed, or hopeless: nearly every day 3. Trouble falling or staying asleep, or sleeping too much: nearly every day 4. Feeling tired or having little energy: several days 5. Poor appetite or overeating: several days 6. Feeling bad about yourself - or that you are a failure or have let yourself and your family down: several days 7. Trouble concentrating on things, such as reading the newspaper or watching television: several days 8. Moving or speaking so slowly that other people could have noticed? - Or the opposite - being so fidgety or restless that you have been moving around a lot more than usual: more than half the days 9. Thoughts that you would be better off or of hurting yourself in some way: more than half the days Total score: 17 If you checked off any problems, how difficult have these problems made it for you to do your work, take care of things at home, or get along with other people?: extremely difficult Source: Developed by Drs. Wilber Kc, Amarilys Taylor, Marques Decker and colleagues, with an educational sariah from [employer]. Suicide Severity Rate CSSRS Have you wished you were or wished you could go to sleep and not wake up?: Yes Have you actually had any thoughts of killing yourself?: Yes CSSRS2 Have you been thinking about how you might do this?: Yes Have you had these thoughts and had some intention of acting on them?: Yes Have you started to work out or worked out the details of how to kill yourself? Do you intend to carry out this plan?: Yes CSSRS3 Have you ever done anything, started to do anything or prepared to do anything to end your life?: Yes CSSRS4 Was this within the past three months?: Yes Screening Score Total Score: 8 Screening: Positive Mental Health Emergency Note Release [facility] release signed:: Yes Reason for Visit Client outreached to this clinician on 12.23.2022 asking for help as she attempted to overdose on her Seroquel last night and that was interrupted by her boyfriend who locked the medications up in his gun cabinet. It should be known that the Seroquel is an old prescription I had stalk piled and not longer take. Client was seeking a higher level of care and was instructed to go to the ED as she has a reported history of substance abuse. It should also be known that this clinician is friendly with the client and the client reported she was not feeling that this clinician doing the assessment would be a conflict of interest. In the last 2 weeks has the pt presented for ES prior to today?: No Client Information Client is: Adult Outpatient Well Housed: Yes Non Suicidal Self Injury Current: No History: No Safety Risk/Harm to Self or Others Current Ideation to Harm Self or Others: No Risk: Does risk to harm exist?: yes. Access to means: Yes. Types of Means: Medication. Details: recent attempt along with history of attempt . Counseling provided: Yes Risk: Moderate Risk Duty to warn indicated: No Asssessment/Mental Status Appearance: Disheveled Attitude: Cooperative and Other (withdrawn ) Behavior: Unremarkable Speech: Soft Affect: Flat and Cogruent with mood Mood: Depressed Thought process: Unremarkable Hallucinations: No Delusions: No Attention: Unremarkable Perception: Not impaired Orientation: Fully orientated Memory: Intact Insight: Good Judgement: Good Neurovegetative Symptoms Sleep: Decrease Appetitie: Decrease Interests: Decrease Energy: Decrease Libido: Not applicable Substance Use: ETOH dependence Drug Issues: Dependence Do you use nicotine?: Yes Have you used substances in the last 7 days?: yes, ETOH daily 1-6 beers and Cocaine dabbling last use 2 days ago and reported use of 1.5 grams a day. Additional Issues: Assaultive/Threatening Behavior: No Medical Concerns: No Client engaged in active self harm w/weapon: No Threatening to run away: No Child reported abuse/neglect: No Voluntarily presenting for services: Yes Domestic violence is a concern: No Extreme Psychosis or extreme behavior is present: No Impression Client is a 32 year old, single, female who lives with her boyfriend in [place] [facility] [place]. 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 Client is reassessed today at [facility] in person. She presents laying down in her bed but is awake and sits up when this clinician enters the room. She is soft spoken and appears withdrawn which is an unfamiliar observation of this client's personality. However, it should be noted that this presentation has been observed over several months by this clinician. Client who typically is upbeat, smiling and happy with a funny joke to tell presents more sad, withdrawn and tired. She did not eat on 12.23.22 and was going to decline breakfast but agreed after discussion of the importance for her mental health to eat even just little bits to order grapes and some toast. She is visited with her mother and then her best friend who have been very supportive of her health. Plan/Disposition Recommended Disposition: Hospitalization facilities contacted. Plan: Client will remain at [facility] on a voluntary basis to seek inpatient treatment. If she has any concerns or questions she is aware she can outreach to this clinician as needed. Hospital is aware of this as well. Client requested her phone to get phone numbers like her therapist so that she can speak with him. Nurse will get this for her. Person reported agreement to plan: Yes Facilities contacted if Applicable [facility] Not accepted, No bed available [facility] Not accepted, No bed available [facility] Not accepted, No bed available, [facility] Not accepted, Other (Reviewing charts. Referral was just received this am as [facility]'s fax kept responding busy last night. ) Reports/communication Outcome discussed with: ED/Personnel
--- NOTE | 2022-12-24 12:38 | NUR.NOTE ---
Nursing Note: Friend, Phliippe, wrote the patient a letter and gave it to access to give to the patient. Letter was put in her personal bags and will be sent to krysta. Philippe requested that the patients mom not be allowed to read the letter and mom is in the room. Krysta will be notified of the presence of the letter when report is called to notify them of patient leaving the facility.
--- NOTE | 2022-12-24 14:55 | CMPROGNOTE_ITS ---
- If Service Date Differs Date of service: 12/24/22 Time of Service: 14:55 Care Management Progress Note DISPOSITION: [facility]. She will follow up with [facility], community providers, and plan of care as instructed upon discharge from the [facility]. [facility] [place] [facility] - MH Services (Omit if N/A) Current MH Services: NK - Status Status: Voluntary - Reason for Wait Reason for Wait: [facility])
--- NOTE | 2022-12-24 14:55 | PDOC.ERCMPRO ---
- If Service Date Differs Date of service: 12/24/22 Time of Service: 14:55 Care Management Progress Note DISPOSITION: [facility]. She will follow up with [facility], community providers, and plan of care as instructed upon discharge from the [facility]. She [facility] to [place] [facility] - MH Services (Omit if N/A) Current MH Services: NK - Status Status: Voluntary - Reason for Wait Reason for Wait: [facility]
--- NOTE | 2022-12-24 15:59 | ED.PROG_ITS ---
Date of service: 12/24/22 Time of Service: 15:59 Medical Decision Making pt accepted by Dr. hayden at [facility], pt remains stable Sign Out Sign Out Data: Sign Out Comment: pending MH reassessment, voluntary placement status for SI, may dc with CP at discretion of MH provider Last updated by Cari Hicks PA at 12/23/22 16:03 Sign Out Comment: Pending Voluntary psych placement. Here with Suicidal ideations of overdosing on medications. Has been calm and cooperative. Last updated by Luz Elena Patel NP at 12/23/22 22:42 Sign Out Comment: Suicidal ideations, here voluntarily, no interventions needed during the night. Last updated by Mahad Damico DO at 12/24/22 06:58 Discharge Plan Disposition Specific Psychiatric Facility: [facility] Condition: Stable Discharge Details Chief Complaint: PsychEval Clinical Impression: Depression, Mood disorder Primary Care Provider: Raissa Mojica ED Provider: Noble Huerta [place] Meds and New Rx's Prescriptions: No Action Mirena 1 EACH intrauterine device 1 ea Intrauterine q5yr Qty: 1 acetylcysteine [NAC] 600 mg capsule 1,200 mg PO QAM Patient Comments: Take 1 capsule by mouth twice a day for one week, increase to two in the morning and one in evening acetylcysteine [NAC] 600 mg capsule 600 mg PO QHS Patient Comments: Take 1 capsule by mouth twice a day for one week, increase to two in the morning and one in evening gabapentin 100 mg capsule 100 mg PO TID Patient Comments: Take 1 capsule by mouth three times a day for anxiety, can decrease to one capsules twice a day if toelrated. Vraylar 4.5 mg capsule 4.5 mg PO QHS Patient Comments: Take 1 capsule by mouth once a day valacyclovir 1 gram tablet 1,000 mg PO DAILY Rx Instructions: TAKE 1 TABLET BY MOUTH DAILY
== END 2022-12-24 16:08 ==
PROVIDERS: Physician Assistant; Emergency Provider Emergency Medicine; PCP Nurse Practitioner Family
DX: F32.A Depression, unspecified (principal); R45.851 Suicidal ideations; F39 Unspecified mood [affective] disorder
CPT/HCPCS: 36415; 80053; 80307; 81025; 87635; 99285; 80320; 80329; 81003; 81015; 85025

== ENCOUNTER 2023-01-11 17:06 | Outpatient (REF) | payer OTHER, SELFPAY ==
[2023-01-13 14:11] LABS: Chlamydia Result Negative (Negative); GC Result Negative (Negative)
== END 2023-01-11 17:07 | disposition home or self-care (01) ==
LOC: LBN 17:06
PROVIDERS: PCP Nurse Practitioner Family; Visit Provider Obstetrics & Gynecology
DX: Z20.2 Contact with and (suspected) exposure to infections with a predominantly sexual mode of transmission (principal)
CPT/HCPCS: 87491; 87591

== ENCOUNTER 2025-02-26 02:51 | Outpatient (CLI) | payer MEDICAID, SELFPAY ==
--- NOTE | 2025-02-26 08:15 | DI.US_ITS ---
Exam(s) US BREAST RT COMPLETE MAMMO DIAGNOSTIC BI EXAM: MAMMO DIAGNOSTIC BI and U/S breast RT complete CLINICAL HISTORY: Lump rt breast at 9 o'clock,n63.15. TECHNIQUE: Craniocaudal and mediolateral oblique Full Field Digital Mammography views with Computer Aided Diagnosis followed by Tomosynthesis and complete right breast ultrasound. All 4 quadrants of t he right breast were evaluated sonographically. The retroareolar region and axilla were also interro gated sonographically. COMPARISON: This is a baseline examination. FINDINGS: Mammography/Tomosynthesis: Masses/Architectural Distortion: There are no suspicious masses or areas of architectural distortion. Microcalcifictions: No suspicious pleomorphic-type are seen. Skin Thickening/Nipple Retraction: None. Complete right breast US: Echotexture: Normal appearance of the glandular tissue. Shadowing: No suspicious foci. Cyst: None. Solid lesions: None seen. Ductal dilation: None. IMPRESSION: 1. No evidence of malignancy is noted. 2. Unless there is more urgent need, screening mammography is recommended as per [employer] guidelines for age. 3. The findings were discussed with the patient on the date of the examination. BI-RADS Category 1 - Negative Breast Density - Category C - The breast are heterogeneously dense, which may obscure small masses. Breast density Category C or D implies that the patient has dense breast tissue. Dense breast tissue can make it harder to find cancer on a mammogram. Dense breast tissue is also associated with an incr eased risk of breast cancer. This information about the result of the mammogram report was provided to the patient to raise their awareness. Use this report when you speak with the patient about their risks for breast cancer, which includes their family history. At that time, you may recommend additional screening tests (Ultrasoun d or MRI) as these tests may add significant information. A negative radiographic report should not delay biopsy if a dominant or clinically suspicious mass is present. Up to ten percent of cancers are not identified on mammography. A negative report may reinforce clinical impression. Adenosis and dense breasts may obscure an underlying neoplasm. False positive reports average 6 to 10%. Patient will receive a letter notifying them of these results.
== END 2025-02-26 03:11 ==
LOC: DI 02:52
PROVIDERS: PCP Nurse Practitioner Family; Visit Provider Nurse Practitioner Family
DX: N63.15 Unspecified lump in the right breast, overlapping quadrants (principal); Z12.31 Encounter for screening mammogram for malignant neoplasm of breast
CPT/HCPCS: 76642; 77062; 77066; G0279

== ENCOUNTER 2025-09-28 01:40 | Outpatient (CLI) | payer SELFPAY ==
[2025-09-28 12:26] LABS: Abs Immature Grans 0.07 10^3/uL (0.0-0.06); HCT 34.8 % (36.0-46.0); HGB 11.8 g/dL (11.2-15.7); Immature Grans % 0.7 %; MCH 28.7 pg (27.0-33.0); MCHC 33.9 % (32.0-36.0); MCV 85 fL (80-95); MPV 9.7 fL (8.0-11.0); Platelet Count 250 10^3/uL (130-400); RBC 4.11 10^6/uL (3.93-5.22); RDW 12.2 % (11.7-14.6); RDW-SD 37.6 fL; WBC 9.36 10^3/uL (4.4-10.8)
[2025-09-28 14:07] LABS: Hemoglobin A1C 5.1 % (<5.7)
[2025-09-29 02:20] LABS: HIV-1/2 Ag & Ab Screen Negative (Negative)
[2025-09-29 02:29] LABS: Hepatitis C Ab w Rflx HCV PCR Negative (Negative)
[2025-10-01 11:44] LABS: Rubella IgG Ab (UVM) Positive (See Note)
[2025-10-01 17:37] LABS: Syphilis IgG w/Reflex Nonreactive (Nonreactive)
[2025-10-01 21:58] LABS: Lab Add On Test DONE
[2025-10-02 18:17] LABS: HBs Antibody, Quant 39.6 mIU/mL (See Note); Hepatitis B Surface Ab Positive (See Note)
[2025-10-02 19:03] LABS: Hep B Core Antibody Negative (Negative)
== END 2025-09-28 01:41 | disposition home or self-care (01) ==
LOC: LBO 01:45
PROVIDERS: PCP Nurse Practitioner Family; Visit Provider Advanced Practice Midwife
DX: Z34.91 Encounter for supervision of normal pregnancy, unspecified, first trimester (principal); Z11.59 Encounter for screening for other viral diseases
CPT/HCPCS: 36415; 81220; 81222; 86704; 86706; 86787; 86803; 86850; 86900; 86901; 87340; 87389; 83036; 85025; 86762; 86780

== ENCOUNTER 2025-09-28 11:01 | Outpatient (REF) | payer SELFPAY ==
--- NOTE | 2025-09-28 11:45 | PAPFT_PTH ---
PATIENT: Simon Aguila LOC: [facility] U#:[id number] AGE/SX: 35/F ROOM: RE09/28/[address]: Luz Maria Bowles : 1990 BED: DIS: 09/28/2025 SPEC #: [id number] RECD: 09/28/25 16:15 STATUS: DAWSON MONISHA #: [id number] PIA: 09/28/25 11:[address]: Luz Maria Bowles DEPT: [facility] Cytology RECD BY: Cari Osborn ENTERED: 09/28/25 16:17 SP TYPE: PAPFT OTHR DR: Raissa Mojica, STAVE BLOCK ROLLER Tissues: 1 - CX/ENDOCX FOR PAP SMEARS Procedures: PAP THIN PREP/UVM Screening HPV DNA PROBE Comments: [id number] (HPV 16 & 18/45) (CHLAMYDIA/GC)
[2025-10-01 12:40] LABS: Chlamydia Result Negative (Negative); GC Result Negative (Negative)
== END 2025-09-28 11:02 | disposition home or self-care (01) ==
LOC: LBN 11:01
PROVIDERS: PCP Nurse Practitioner Family; Visit Provider Advanced Practice Midwife
DX: Z34.91 Encounter for supervision of normal pregnancy, unspecified, first trimester (principal)
CPT/HCPCS: 87491; 87591; 88142; 87086; 87480; 87510; 87624; 87660